=== PATIENT | male | born 1970 | race Two or more races ===

== ENCOUNTER 2022-08-16 01:10 | Emergency (ER) | payer OTHER ==
[~2022-08-16] VITALS: Ht 167.6 cm; Wt 117.9 kg
[2022-08-16] MEDS ORDERED: VALSARTAN-HCTZ1 EACH PO (01:32)
[2022-08-16] MEDS ORDERED: METOPROLOL SUC100 MG PO (01:32)
[2022-08-16] MEDS ORDERED: NABUMETONE750 MG PO (05:03)
[2022-08-16] MEDS ORDERED: ORPHENADRINE C100 MG PO (05:03)
== END 2022-08-16 05:56 ==
LOC: ER 01:10
DX: M54.50 Low back pain, unspecified (principal); M51.36 Other intervertebral disc degeneration, lumbar region; I10 Essential (primary) hypertension